=== PATIENT | male | born 1985 | race Caucasian/White ===

== ENCOUNTER 2018-08-18 14:15 | Emergency (ER) | payer OTHER ==
[2018-08-18 14:50] VITALS: BP 140/95
--- NOTE | 2018-08-18 15:03 | UC ---
Dental HPI - HPI Summary HPI Summary: Patient states that he got 2 teeth filled about one month ago and over the past day he had some pain in his left lower jaw which radiates up to his left ear and he was worried that he may have an infection there. - History of Current Complaint Chief Complaint: Markus Stated Complaint: DENTAL PAIN Time Seen by Provider: 08/18/18 14:36 Hx Obtained From: Patient Onset/Duration: Gradual Onset Severity: Mild Pain Intensity: 3 Aggravating Factor(s): Nothing - Eyes any sensitivity when chewing. Alleviating Factor(s): Nothing Related History: Previous Dental Care on Same Tooth - She had the upper and lower molars on the left side filled approximately one month ago. - Allergies/Home Medications Allergies/Adverse Reactions: Allergies Allergy/AdvReac Type Severity Reaction Status Date / Time No Known Allergies Allergy Verified 08/18/18 14:50 Home Medications: Home Medications NK [No Home Medications Reported] 08/18/18 [History Confirmed 08/18/18] PMH/Surg Hx/FS Hx/Imm Hx Previously Healthy: Yes - Surgical History Surgical History: Yes Surgery Procedure, Year, and Place: inguinal hernia repair - Family History Known Family History: Positive: Diabetes - Mother with insulin-dependent diabetes. - Social History Alcohol Use: None Substance Use Type: None Smoking Status (MU): Never Smoked Tobacco Review of Systems All Other Systems Reviewed And Are Negative: Yes Constitutional: Positive: Fever - Fever approximately 2 days ago but no longer. ENT: Positive: Dental Pain - Patient states he has some lower chest dental pain which radiates up towards his left ear however presently he has no pain. The father stated that he looked on the Internet so he was afraid there might be some sort of infection spreading to his brain. Is Patient Immunocompromised?: No Physical Exam Triage Information Reviewed: Yes Appearance: Well-Appearing, No Pain Distress, Well-Nourished Vital Signs: Initial Vital Signs Temp 99 F 08/18/18 14:41 Pulse 98 08/18/18 14:41 Resp 18 08/18/18 14:41 BP 140/95 08/18/18 14:41 Pulse Ox 100 08/18/18 14:41 Vital Signs Reviewed: Yes Eye Exam: Normal ENT Exam: Normal Dental Exam: Normal - Teeth nontender on palpation, gumline appears normal, no erythema, swelling or abscess formation. Neck exam: Normal Neck: Positive: Supple, Nontender, No Lymphadenopathy Respiratory Exam: Normal Cardiovascular Exam: Normal Musculoskeletal Exam: Normal Neurological Exam: Normal Psychological Exam: Normal Skin Exam: Normal Dental Complaint Course/Dx - Course Course Of Treatment: Patient has been comfortable here and pain-free. The father states that the patient was more anxious about the possibility of a severe infection developing and going to his brain. I was able to reassure the patient that at this point time I believe he may have had just a viral infection this week but at this point time I do not see any abscess formation or any infection that warrants use of an antibiotic. I did encourage follow-up with the dentist on Monday if he continues to feel like he is having tooth pain. - Differential Dx/Diagnosis Provider Diagnosis: Toothache Discharge - Sign-Out/Discharge Documenting (check all that apply): Patient Departure All imaging exams completed and their final reports reviewed: No Studies - Discharge Plan Condition: Good Disposition: HOME Patient Education Materials: Toothache (ED) Referrals: No Primary Care Phys,NOPCP [Primary Care Provider] - [facility] [Outside] Additional Instructions: May take Tylenol every 4 hours and ibuprofen every 6-8 hours for pain. Definite follow-up with your dentist on Monday if you have continued toothache. - Billing Disposition and Condition Condition: GOOD Disposition: Home
== END 2018-08-18 15:25 | disposition home or self-care (01) ==
LOC: UCEAST 14:15
DX: K08.89 Other specified disorders of teeth and supporting structures (principal)
CPT/HCPCS: 99201; G0463